=== PATIENT | female | born 1945 | race Caucasian/White ===

== ENCOUNTER 2021-09-28 11:17 | Emergency (ER) | payer MEDICARE, OTHER, SELFPAY ==
[2021-09-28 11:25] VITALS: BP 175/63; PULSE 64; TEMP 36.1; O2SAT 99; BMI 31.7
--- NOTE | 2021-09-28 11:35 | CRLHL7_ITS ---
For Patients: As a result of the Century Cures Act, medical imaging exams and procedure reports are released immediately into your electronic medical record. You may view this report before your referring provider. If you have questions, please contact your health care provider. Indication: Trauma Technique: CT examination of the facial bones is performed. Thin-section axial imaging was obtained from above the frontal sinuses through the level the hyoid bone. Contrast was not administered. Sagittal and coronal reformatted imaging was performed. Please note that all CT scans at this facility use dose modulation, iterative reconstruction, and/or weight-based dosing when appropriate to reduce radiation dose to as low as reasonably achievable. Comparison: There are no prior studies for comparison. Findings: There is soft tissue swelling about the nose and there are nondisplaced bilateral nasal ala fractures, left greater than right. There are no additional facial or orbital region fractures identified. There are chronic inflammatory changes identified involving the left maxillary sinus. There is carious dentition. Abnormal periapical lucency is identified involving the posterior most upper left tooth, probably tooth 14, likely representing a periapical abscess. Impression: 1. Nondisplaced bilateral nasal ala fractures, left greater than right without significant displacement. 2. Chronic inflammatory changes of the sinuses primarily in the left maxillary sinus. 3. Carious dentition with abnormal periapical lucency suggesting periapical abscess. This affects the posterior-most upper left tooth, probably tooth 14. Please note that all CT scans at this facility use dose modulation, iterative reconstruction, and/or weight-based dosing when appropriate to reduce radiation dose to as low as reasonably achievable. Dictated by Domingo Espinosa MD @ 09/28/2021 12:21:20 PM (Electronically Signed)
--- NOTE | 2021-09-28 11:43 | ED_ITS ---
HPI - General Adult General Date Seen: 09/28/21 Chief complaint: Nose Injury/Pain Stated complaint: Fell, hurt nose Time Seen by Provider: 09/28/21 11:30 Source: patient Mode of arrival: ambulatory Limitations: no limitations History of Present Illness HPI narrative: 76-year-old female presents for evaluation of injury to her face. She tripped over a mat at her house today. She fell forward and hit her face on the ground. She knocked her maxillary central incisor is loose and went to the dentist. The dentist reposition her teeth and placed a wire to stabilize them. She is now here to evaluate for her other injuries. Primarily she is concerned about her nose. It is painful, bruised and swollen. She did not lose consciousness. She did not faint. She was feeling well today before she fell. She has no other injuries. She did not hurt her arms trying to catch her fall or hurt her knees when she landed. She reports no change in her vision. Other than her teeth and nose she is not having significant pain. Related Data Home Medications Medication Instructions Recorded Confirmed chlorthalidone 25 mg tablet 25 mg PO DAILY 09/28/21 09/28/21 lisinopril 40 mg tablet 40 mg PO DAILY 09/28/21 09/28/21 simvastatin 20 mg tablet 20 mg PO HS 09/28/21 09/28/21 Allergies Allergy/AdvReac Type Severity Reaction Status Date / Time Sulfa (Sulfonamide Allergy Verified 09/28/21 11:36 Antibiotics) Review of Systems Narrative: She reports no illness or injury. [facility] Medical History (Updated 09/28/21 @ 13:00 by Elder Tello MD) Hypertension Secondary renal hyperparathyroidism Stage 3 chronic kidney disease Surgical History (Updated 09/28/21 @ 11:48 by Elder Tello MD) History of cholecystectomy Social History Smoking Status: Unknown if ever smoked Do you use any of these nicotine containing products: None How often do you have a drink containing alcohol: monthly or less How often do you have six or more drinks on one occasion: Never AUDIT-C Alcohol total score: 1 Non-prescribed substance use: denies use Exam Narrative: Exam Narrative: She is alert and appears in no distress. Face is notable for moderate bruising and abrasion over the bridge of her nose. She has swelling of her upper lip hour as well. No other evidence of trauma on inspection of her head. Palpation shows no other areas of tenderness. This includes no tenderness over her forehead, orbital rims, zygomatic arch, mandible, TMJ. Eyes are normal. Pupils are equal round reactive to light. Extraocular movements are full. Moderate nasal swelling and bruising with abrasion. Inspection of her nares shows no active bleeding. Oropharynx notable for bruising around her upper incisors in the gingiva with a metal wire holding her incisors in place. Her upper lip has bruising and a superficial laceration/ulcer of about 2 x 5 mm. Tongue appears normal. Neck is supple without tenderness. She has diminished range of motion but no discomfort with range of motion of her neck. Inspection of her arms and legs are unremarkable. Const: Vital Signs, click to edit/add: Vital Signs - 24 hr 09/28/21 11:25 Temperature 97.0 F L Pulse Rate [Left] 64 Blood Pressure [Ri ght Upper Arm] 175/63 H Pulse Oximetry 99 Oxygen Delivery Me thod Room Air Documenting provider has reviewed patient's vital signs: yes Course Vital Signs Vital signs: Initial Vital Signs Temperature 97.0 F L 09/28/21 11:25 Temperature Source Temporal Artery Scan 09/28/21 11:25 Pulse Rate 64 09/28/21 11:25 Blood Pressure 175/63 H 09/28/21 11:25 Blood Pressure Mean 100 09/28/21 11:25 Blood Pressure Position Sitting 09/28/21 11:25 Pulse Oximetry 99 09/28/21 11:25 Oxygen Delivery Method 09/28/21 11:25 Vital Signs Temperature 97.0 F L 09/28/21 11:25 Pulse Rate 64 09/28/21 11:25 Blood Pressure 175/63 H 09/28/21 11:25 Pulse Oximetry 99 09/28/21 11:25 Oxygen Delivery Method 09/28/21 11:25 Temperature 97.0 F L 09/28/21 11:25 Pulse Rate 64 09/28/21 11:25 Blood Pressure 175/63 H 09/28/21 11:25 Pulse Oximetry 99 09/28/21 11:25 Oxygen Delivery Method 09/28/21 11:25 Discharge Plan Discharge Clinical Impression: Closed fracture nasal bone Patient Disposition: Home, Self-Care Condition: Stable Additional Instructions: Use Tylenol as needed for pain. The fractures of your nose are nondisplaced. You probably will not need any further treatment of your nasal fracture. Protect your nose and it should look normal once the bones heel in a few weeks. Keep the skin clean by washing with soap and water in the shower. Activity Level: Activity as Tolerated Prescriptions: No Action chlorthalidone 25 mg tablet 25 mg PO DAILY simvastatin 20 mg tablet 20 mg PO HS lisinopril 40 mg tablet 40 mg PO DAILY Follow Up/Referrals: Tram Campos PA [Primary Care Provider] - Stand Alone Forms: [employer] Info Instructions
[2021-09-28 13:23] VITALS: BP 161/103; PULSE 67; O2SAT 100
== END 2021-09-28 13:24 | disposition home or self-care (01) ==
PROVIDERS: Emergency Provider Family Medicine; PCP Physician Assistant
DX: S02.2XXA Fracture of nasal bones, initial encounter for closed fracture (principal); W01.0XXA Fall on same level from slipping, tripping and stumbling without subsequent striking against object, initial encounter
CPT/HCPCS: 70486; 99283

== ENCOUNTER 2024-10-08 18:27 | Emergency (ER) | payer MEDICARE, SELFPAY ==
--- OUTSIDE RECORDS SUMMARY | 2024-10-08 18:29 | XMS_ITS | Clinical Summary ---
Author Organization [facility] Address [address] [place] [id number] Care Team Providers Care Clinical Sociologist Name Role Phone Renae Emmanuel Primary Care Provider [phone] Allergies Active Allergy Reactions Criticality Noted Date Comments Sulfa (Sulfonamide Antibiotics) Rash 05/27 Medications glucosamine sulfate (GLUCOSAMINE) 500 mg Tab Take by mouth once daily. 0 01/24/20 10 Active acetaminophen (TYLENOL) 325 mg tablet Take 1 tablet by mouth every 4 hours if needed. Max acetaminophen dose: 4000mg in 24 hrs. 0 01/24/20 10 Active chlorthalidone (HYGROTON) 25 mg tabletIndications: HTN (hypertension) Take 1 Tablet (25 mg) by mouth once daily. 90 Tablet 3 03/11/19 25 Active lisinopriL (PRINIVIL; ZESTRIL) 40 mg tabletIndications: HTN (hypertension) Take 1 Tablet (40 mg) by mouth once daily. 90 Tablet 3 03/11/19 25 Active simvastatin (ZOCOR) 20 mg tabletIndications: Mixed hyperlipidemia Take 1 Tablet (20 mg) by mouth once daily in the evening. 90 Tablet 3 03/11/19 25 Active alendronate (FOSAMAX) 70 mg tabletIndications: Osteopenia with high risk of fracture Take 1 Tablet (70 mg) by mouth once a week in the morning. Take on empty stomach with full glass of water. Do not lie down for 1 hr. 12 Tablet 3 03/27/19 25 Active Active Problems Problem Noted Date Diagnosed Date Osteopenia with high risk of fracture 03/27/2024 Secondary renal hyperparathyroidism 03/30/2020 Osteoporosis screening 01/06/2020 Overview (01/06/2020): Bone density December 2019, normal. Repeat 3-5 years. HTN (hypertension) 11/18/2019 Calculus of gallbladder with out cholecystitis without obstruction 01/30/2018 Actinic keratosis 03/10/2010 Vitamin D deficiency 08/05/2008 Stage 3b chronic kidney disease 06/21/2007 Resolved Problems Problem Noted Date Diagnosed Date Resolved Date Unspecified essential hypertension 06/17/2007 01/23/2010 Immunizations Immunization Administration Dates Next Due COVID-19 VACCINE SPIKEVAX (M ODERNA 50MCG/0.5ML) 12YO+ PFS 01/28/2023 COVID-19 vaccine ([employer] NTech 30mcg/0.3mL) 12YO+ BIVALENT PF, MDV 09/04/2022,11/17/2021 Influenza, High-dose Inactivated 12/21/2018 Influenza, High-dose Quadriv alent Inactivated 12/19/2020 Influenza, IIV3 (Age >=3 years) 01/23/2010 Influenza, Inactivated AIIV4 (Age 65+ Years) Preserv Free 01/14/2023,01/03/2022,11/18/2019 Influenza, Inactivated IIV3 (Age 65+ Years) Preserv Free 12/11/2023,01/30/2018,03/04/2017 Pneumococcal Poly,23-Valent (Pneumovax) 01/24/20 10 Pneumococcal conj 13-Valent (Prevnar 13) 015 RSV, Recombinant ADJ Reconst ituted (Arexvy 120MCG/0.5mL) 02/28/2023 Td (Age >=7 Years) 10/16/1995 Tdap 12/11/2019,10/21/2006 Zoster (Shingrix-RZV, recombinant) 04/28/2020, Zoster (Zostavax-ZVL, live) 02/02/2010 Family History Medical History Relation Name Comments Heart Disease Brother 2 poor lifestyle /ca larynx, lungs Cancer Father leukemia age 90 Hypertension Mother Other Mother alzheimers Cancer Sister hodgkins lympho ma Cancer-breast Sister Diabetes Sister Heart failure Sister CHF Hypertension Sister Diabetes Son dialysis, needi ng kidney transplant, double amputee Liver disease Son liver failure Other Son Guillain [place], diagnosed in 2007 after a sinus infection Relation Name Status Comments Brother 1 (Age 70) cancer Brother 2 Father Mother Sister Son Social History Tobacco Use Types Packs/Day Years Used Date Smoking Tobacco: Never Smokeless Tobacco: Never Tobacco Cessation:Counseling Given: Yes Alcohol Use Standard Drinks/Week Comments No 0 (1 standard drink = 0.6 oz pur e alcohol) rare PHQ-2 Answer Date Recorded PHQ-2 TOTAL SCORE 0 03/11/2024 Social Connections Answer Date Recorded Frequency of Communication with Friends and Fami ly 0 02/09/2022 Financial Resource Strain Answer Date R ecorded Difficulty of Paying Living Expenses 3 02/09/2022 Difficulty of Paying Living Expenses Not on file 02/09/2022 Food Insecurity Answer Date Recorded Worried About Running Out of Food in the Last Ye ar 1 02/09/2022 Transportation Needs Answer Date Record ed Lack of Transportation (Medical) 1 02/09/2022 Housing Stability Answer Date Recorded Unable to Pay for Housing in the Last Year 1 02/09/2022 Comments No Sex and Gender Information Value Date Recorded Sex Assigned at Not on file Legal Sex Female 5:24 AM RESTAURANT LEAD Gender Identity Not on file Sexual Orientation Not on file Obstetrics History Para Term AB IAB SAB Ectopic Multiple Livin g Live Births 3 3 Date Outcome GA Total Labor Labor/2nd/3rd Weight Sex Type Anes PTL Berna A1 A5 Name Clin Current Last Filed Vital Signs Vital Sign Reading Time Taken Comments Blood Pressure 130/68 03/11/2024 12:47 PM RESTAURANT LEAD Pulse 80 03/11/2024 12:47 PM RESTAURANT LEAD Temperature 36.9 C (98.4 F) 10/30/2018 1:06 PM CDT Respiratory Rate 16 2018 9:32 AM RESTAURANT LEAD Oxygen Saturation 99% 03/11/2024 12:47 PM RESTAURANT LEAD Inhaled Oxygen Concentration - - Weight 79.8 kg (176 lb) 03/11/2024 12:47 PM RESTAURANT LEAD Height 153.7 cm (5' 0.5) 03/11/2024 12:47 PM CS T Body Mass Index 33.81 03/11/2024 12:47 PM RESTAURANT LEAD Plan of Treatment Health Maintenance Due Date Last Done Comments Influenza Vaccine (#1) 2024 4, 01/14/2023, 01/03/2022, Additional history exists COVID-19 vaccine series ( season) 2024 05/15/2024, 09/20/2023, 01/28/2023, Additional history exists BMI (ht and wt on same day) for age 18+ 03/11/2025 03/11/2024, 02/11/2023, 02/09/2022, Additional history exists Depression screening for age 12+ 03/11/2025 03/11/2024, 02/11/2023, 02/11/2023, Additional history exists Medicare Wellness for age 65+ 03/12/2025 03/11/2024, 02/11/2023, 02/09/2022, Additional history exists Tetanus booster 12/10/2029 12/11/2019, 09/26, 10/16/1995 Pneumococcal series for age 50+ Completed 05/18/2014, 01/23/2010 Hepatitis C screening for age 18-79 Completed 11/11/2019 Zoster (shingles) series for age 50+ Completed 04/28/2020, 01/07/2020, 02/02/2010 RSV vaccine for adults or Completed 02/28/2023 DEXA/DXA scan for age 65+ Completed 2024, 12/31/2019, 02/02/2010, Additional history exists Hepatitis B series for 19+ Aged Out N o longer eligible based on patient's age to complete this topic Procedures Procedure Name Priority Date/Time Associated Diagnosis Comments XR DXA BONE DENSITY 2 SITES AXIAL AND 1 SITE PERIPHERAL Routine 03/18/2024 1:17 PM RESTAURANT LEAD Menopause ANTI HCV Routine 11/11/2019 10:48 AM CDT Encounter for hepatitis C screening test for low risk patient from Last 3 Months or Most Recently Relevant to Health Maintenance Results * (ABNORMAL) XR DXA BONE DENSITY 2 SITES AXIAL AND 1 SITE PERIPHERAL (03/18/2024 1:17 PM RESTAURANT LEAD) Anatomical Region Laterality Modality LUMBAR SPINE Other Impressions 03/24/2024 1:37 PM RESTAURANT LEAD Osteopenia. RECOMMENDATIONS: The National Osteoporosis Foundation recommends pharmacologic treatment for patients with T-scores of -2.5 or less, patients with prior history of fragility fractures, or patients with 10-year probability of greater than 3% at hips or greater than 20% of suffering major osteoporotic fractures. Recommend continued optimization of calcium and vitamin D intake through dietary means and/or supplementation and regular exercise. Consider pharmacologic therapy for osteopenia with increased fracture risk. Follow-up bone density reading in 2 years if therapy initiated to assess therapeutic efficacy. Crystal Matamoros PA-C [facility] 03/24/2024 Narrative 03/24/2024 1:37 PM RESTAURANT LEAD For Patients: Results are automatically released to your [facility] ([employer]) account once available, in compliance with federal regulations. This means that you may see your results before your provider has had a chance to review them. Please allow 2-3 business days for your provider to comment on the results. XR DXA Bone Mineral Density (BMD) EXAM LOCATION: [address] [address] PATIENT NAME: Viktoriya Coffey DATE OF : 1945 EXAM DATE: 03/18/2024 REQUESTING PROVIDER: Renae Emmanuel PA GENDER AT : female HEIGHT: 5' 0.5 (03/11/2024) WEIGHT: 176 lb (03/11/2024) MENOPAUSAL STATUS: Postmenopausal RACE/ETHNICITY: White RISK FACTORS: Family History of Hip Fracture (parental), Height Loss (2 inches or more), Hyperparathyroidism, and White Race CURRENT MEDICATION FOR BONE LOSS: NONE INDICATION: Menopause COMPARISON DATE(S): 2019 DXA scans are compared to prior studies for a patient only when the two (or more) studies were performed on the same scanner. It is not possible to compare data generated on one scanner to data from another because there are not standards in DXA equipment. This applies even if the two scanners are made by the same damage inside adjuster. PROCEDURE: Dual-energy x-ray absorptiometry performed with routine technique. Reporting is completed in the form of a T-score. The T-score represents the standard deviation from peak bone mass based on young healthy adult. A Z-score is used for diagnosis in premenopausal women, and for men under the age of 50. FINDINGS: RESULT LUMBAR SPINE L1 - L2 (EXCLUDE L3, L4) BMD: 1.310 g/cm2 T-Score: + 1.1 Z-Score: + 2.4 Change from prior in 2007: Increase 6.1%. RESULTS FEMUR Left femoral neck BMD: 0.907 g/cm2 T-Score: - 0.9 Z-Score: + 0.8 Change from prior in 2019: Decrease 2.2%. Right femoral neck BMD: 0.845 g/cm2 T-Score: - 1.4 Z-Score: + 0.4 Change from prior in 2020: Decrease 6.0%. Left hip BMD: 0.883 g/cm2 T-Score: - 1.0 Z-Score: + 0.6 Change from prior in 2020: Decrease 2.2%. Right hip BMD: 0.807 g/cm2 T-Score: - 1.6 Z-Score: + 0.0 Change from prior in 2019: Decrease 9.6%. RESULT FOREARM Left Forearm distal radius BMD: 0.734 g/cm2 T-Score: + 1.0 Z-Score: + 3.6 Change from prior: None WHO criteria: Normal: T-score at or above -1 SD Osteopenia: T-score between -1.1 and -2.4 SD Osteoporosis: T-score at or below -2.5 SD FRAX RISK CALCULATION (USED FOR OSTEOPENIA ONLY): 10-year probability of major osteoporotic fracture: 20.3%. 10-year probability of hip fracture: 10.7%. us Renae KAUR DEXA Final Res ult * ANTI HCV (11/11/2019 10:48 AM CDT) HEPATITIS C ANTIBODY Non-React deyanira Non-React deyanira 11/11/2019 6:27 PM CDT [facility] Comment:Antibodies to HCV no t detected; does not exclude the possibility of exposure to HCV. Blood BLOOD SPECIMEN / Unknown Venipuncture / Unknown 11/11/2019 10:48 AM CDT 11/11/2019 10:48 AM CDT us Tram KAUR SEND OUTS Final Resu lt [facility] [address] [place] [address], from Last 3 Months or Most Recently Relevant to Health Maintenance Insurance MEDICARE PB ONLY [facility] Advance Directives Documents on File Type Date Recorded Patient Dependency Case Manager Expl anation Healthcare Directive 04/12/2016 017 Care Teams Clinical Sociologist Relationship Specialty Start Date End Date Renae Emmanuel PA [address] [place] [address] PCP - General Physician Sticker Hand 12/18/22
--- OUTSIDE RECORDS SUMMARY | 2024-10-08 18:29 | XMS_ITS | Clinical Summary ---
Author Organization [facility] Address [address] [place] [address] Care Team Providers Care Supervisor Testing Name Role Phone Elsewhere, Pcp Primary Care Provider Unavailabl e Source Comments Patient records contain information from all sites at [facility]. For routine questions regarding patient records, call [phone] during business hours, M-F 8:00 AM - 5:00 PM Central Time. Record requests for emergency care only can be directed to [phone] at any time.[facility] Allergies Active Allergy Reactions Criticality Noted Date Comments Sulfa (Sulfonamide Antibiotics) Rash 05/27 Medications chlorthalidone (HYGROTON) 25 mg tablet 0 Active lisinopriL (PRINIVIL,ZESTR [place]) 40 mg tablet 0 Active simvastatin (ZOCOR) 20 mg tablet 0 Active glucosamine sulfate 500 mg tablet Take by mouth. 0 Active acetaminophen (TYLENOL) 325 mg tablet Take 325 mg by mouth. 0 Active alendronate (Fosamax) 70 mg tablet Take 70 mg by mouth once a week. Take with 8oz of water, on an empty stomach. Remain upright for 30min. Active nirmatrelvir-ri tonavir (Paxlovid) 150-100 mg dose pack Take 150 mg nirmatrelvir (one 150 mg tablet) with 100 mg ritonavir (one 100 mg tablet) twice daily for 5 days. 20 tablet 5 Active Active Problems Problem Noted Date Diagnosed Date COVID-19 Infection 03/03/2020 Immunizations Immunization Administration Dates Next Due Influenza high dose QV(65 years or older) (PF) 1 Social History Tobacco Use Types Packs/Day Years Used Date Smoking Tobacco: Never Assessed Comments Unknown Sex and Gender Information Value Date Recorded Sex Assigned at Not on file Legal Sex Female 9:06 AM CDT Gender Identity Not on file Sexual Orientation Not on file Last Filed Vital Signs Vital Sign Reading Time Taken Comments Blood Pressure 108/50 03/05/2020 10:50 AM TANK FURNACE OPERATOR Pulse 69 03/05/2020 10:50 AM TANK FURNACE OPERATOR Temperature 37.1 C (98.8 F) 03/05/2020 10:50 AM TANK FURNACE OPERATOR Respiratory Rate 18 03/05/2020 10:50 AM TANK FURNACE OPERATOR Oxygen Saturation 99% 03/05/2020 10:50 AM TANK FURNACE OPERATOR Inhaled Oxygen Concentration - - Weight - - Height - - Body Mass Index - - Plan of Treatment Health Maintenance Due Date Last Done Comments Hepatitis C Screening 1945 Creatinine Level (Kidney Function Test) 02/12/2024 02/11/2023, 01/31/2022, 01/31/2021, Additional history exists Potassium Level 02/12/2024 02/11/2023, 12/0 08/2021, 01/31/2021, Additional history exists Sodium Level 02/12/2024 02/11/2023, 12/0 08/2021, 01/31/2021, Additional history exists Depression Screening (Annual PHQ-2) 02/26/2024 Fall Risk Screen (Annual) 02/26/2024 COVID-19 Vaccine ( season) 2024 05/15/2024, 09/20/2023, 01/28/2023, Additional history exists Influenza Vaccine (#1) 2024 , 01/14/2023, 01/03/2022, Additional history exists DTaP,Tdap,and Td Vaccines (3 - Td or Tdap) 12/10/2029 12/11/2019, 10/21/2006, 10/16/1995 Pneumococcal vaccine (50+ years) Completed 05/18/2014, 01/23/2010 Bone Density Scan (Osteoporosis Screen) Discontinued 12/31/2019 Zoster Vaccines Completed 04/28/2020, 12/26, 02/02/2010 RSV vaccine - (32-36 weeks) or 60+ years Completed 02/28/2023 Mammogram Discontinued 03/05/2024, 12/26, 01/01/2022, Additional history exists IPV Vaccines Aged Out No longer eligi reyna based on patient's age to complete this topic Insurance MEDICARE [employer] Care Teams Supervisor Testing Relationship Specialty Start Date End Date Elsewhere, Pcp PCP - General 06/18/21
[2024-10-08 18:39] VITALS: BP 174/63; PULSE 76; RESP 20; TEMP 36.3; O2SAT 98; BMI 32.5
--- NOTE | 2024-10-08 18:40 | ED.GENADULT ---
HPI - General Adult General Time Seen by Provider: 18:40 Date Seen: 10/08/24 Chief complaint: Fall/Minor Trauma Stated complaint: Fall, L leg injury, hit head Time Seen by Provider: 10/08/24 18:39 Source: patient Mode of arrival: ambulatory Limitations: no limitations History of Present Illness HPI narrative: Viktoriya is a 79-year-old female past medical history includes hypertension, chronic kidney disease presents emergency department via private car and was spouse after a fall. Patient states she was just finishing mowing the lawn, it was raining, was walking up her ramp to her house when she slipped forward twisting her left ankle and falling forward hitting side of her head on the wood floor. She denies any LOC. she was able to ambulate after the fall. She did sustain abrasion to the left front part of her head, she did have some swelling to that left ankle. She denies any neck pain or upper lower back pain, she denies any chest injury, shortness of breath or abdominal pain. She did not take any for pain. She is up-to-date on her tetanus status. Patient had been doing well prior to the fall. Related Data Home Medications ?Medication ?Instructions ?Recorded ?Confirmed chlorthalidone 25 mg tablet 25 mg PO DAILY 09/28/21 10/08/24 lisinopril 40 mg tablet 40 mg PO DAILY 09/28/21 10/08/24 simvastatin 20 mg tablet 20 mg PO HS 09/28/21 10/08/24 alendronate 70 mg tablet mg PO 10/08/24 Allergies Allergy/AdvReac Type Severity Reaction Status Date / Time Sulfa (Sulfonamide Allergy Verified 10/08/24 18:36 Antibiotics) Review of Systems Status of ROS: Reports: 10 or more systems reviewed and unremarkable except as noted in History and below [facility] Medical History Secondary renal hyperparathyroidism ?N25.81 - Secondary hyperparathyroidism of renal origin (ICD-10) Hypertension ?I10 - Essential (primary) hypertension (ICD-10) Stage 3 chronic kidney disease ?N18.30 - Chronic kidney disease, stage 3 unspecified (ICD-10) Surgical History (Updated 09/28/21 @ 11:48 by Elder Tello MD) History of cholecystectomy ?Z90.49 - Acquired absence of other specified parts of digestive tract (ICD-10) Social History Smoking Status: Unknown if ever smoked Do you use any of these nicotine containing products: None How often do you have a drink containing alcohol: monthly or less How often do you have six or more drinks on one occasion: Never AUDIT-C Alcohol total score: 1 Non-prescribed substance use: denies use Exam Narrative: Exam Narrative: General: No obvious distress, sitting comfortably HEENT: Tympanic membranes within normal limits bilaterally, pupils equal round reactive to light Extraocular muscles intact, small abrasion contusion in the left frontal region Oropharynx clear and moist Lungs: Clear to auscultation bilaterally Heart: Normal sinus rhythm S1-S2 Abdomen: Soft, nontender, bowel sounds present Muscle skeletal: Nontender to palpation the cervical, thoracic and lumbar spine Full range of motion of the right and left hip Left lower extremity: No proximal tibia and fibula tenderness, tender to palpation the lateral malleolus, swelling present, mild tenderness to palpation the proximal lateral foot, FROM, CMS intact. Const: Vital Signs, click to edit/add: Vital Signs - 24 hr 10/08/24 18:39 Temperature 97.4 F L Pulse Rate [Pulse Oximeter] 76 Respiratory Rate 20 Blood Pressure [Ri ght Upper Arm] 174/63 H Pulse Oximetry 98 Oxygen Delivery Me thod Room Air Course Course ED Course: 6:45 PM: aidet performed. Vitals are normal at this time, workup will include CT head without IV contrast, XR left foot and ankle 3+ views, no other labs or imaging to be obtained at this time, 1 g Tylenol for her pain differential includes fracture, sprain, contusion, dislocation, vascular damage, nerve damage ligament damage, tendon damage, for the head injury close head injury, concussion, life-threatening considerations are subarachnoid hemorrhage, subdural hemorrhage and epidural hemorrhage. Reevaluation(s) Time of Reevaluation #1: 20:10 Reevaluation #1: CT head without IV contrast: IMPRESSION: 1. No acute intracranial abnormalities. XR left ankle and foot 3+ views: Findings/Impression: Bones: Alignment is normal. No displaced fractures or bone lesions. Joint spaces: Unremarkable. Soft tissues: Unremarkable. Brooks wrap applied, offered crutches patient declined, she will follow up with her primary care provider next 7-10 days, RICE instructions given, Tylenol and or Motrin every 4-6 hours as needed for pain, return precautions given. Vital Signs Vital signs: Initial Vital Signs Temperature 97.4 F L 10/08/24 18:39 Temperature Source Temporal Artery Scan 10/08/24 18:39 Pulse Rate 76 10/08/24 18:39 Respiratory Rate 20 10/08/24 18:39 Blood Pressure 174/63 H 10/08/24 18:39 Blood Pressure Mean 100 10/08/24 18:39 Pulse Oximetry 98 10/08/24 18:39 Oxygen Delivery Method Room Air 10/08/24 18:39 Vital Signs Temperature 97.4 F L 10/08/24 18:39 Pulse Rate 76 10/08/24 18:39 Respiratory Rate 20 10/08/24 18:39 Blood Pressure 174/63 H 10/08/24 18:39 Pulse Oximetry 98 10/08/24 18:39 Oxygen Delivery Method Room Air 10/08/24 18:39 Temperature 97.4 F L 10/08/24 18:39 Pulse Rate 76 10/08/24 18:39 Respiratory Rate 20 10/08/24 18:39 Blood Pressure 174/63 H 10/08/24 18:39 Pulse Oximetry 98 10/08/24 18:39 Oxygen Delivery Method Room Air 10/08/24 18:39 Medications Administered Medications: Discontinued Medications Generic Name Dose Route Start Last Admin Trade Name Ted PRN Reason Stop Dose Admin Acetaminophen 1,000 mg 10/08/24 18:52 10/08/24 18:58 Acetaminophen 500 Mg Tablet PO 10/08/24 18:53 1,000 mg ONCE ONE Administration Discharge Plan Discharge Clinical Impression: Head injury, Injury of ankle, left Patient Disposition: Home, Self-Care Condition: Improved Instructions: Head Injury (ED), P.R.I.C.E. Treatment (ED) Activity Level: No Restrictions Prescriptions: No Action chlorthalidone 25 mg tablet 25 mg PO DAILY simvastatin 20 mg tablet 20 mg PO HS lisinopril 40 mg tablet 40 mg PO DAILY alendronate 70 mg tablet PO Follow Up/Referrals: Tram Campos PA [Primary Care Provider, Family Practice] Stand Alone Forms: MyHealth Info Instructions
--- NOTE | 2024-10-08 18:48 | CRLHL7_ITS ---
For Patients: As a result of the Century Cures Act, medical imaging exams and procedure reports are released immediately into your electronic medical record. You may view this report before your referring provider. If you have questions, please contact your health care provider. INDICATION: Fall. Left frontal contusion. TECHNIQUE: CT of the head without contrast. Coronal and sagittal reformats are included. COMPARISON: None. FINDINGS: No acute intracranial hemorrhage. No mass effect or midline shift. No hydrocephalus or extra-axial collections. White matter is within normal limits for age. No acute osseous abnormalities. Mild left maxillary sinus mucosal thickening. Paranasal sinuses and mastoid air cells are otherwise clear. Normal soft tissues. IMPRESSION: IMPRESSION: 1. No acute intracranial abnormalities. Please note that all CT scans at this facility use dose modulation, iterative reconstruction, and/or weight-based dosing when appropriate to reduce radiation dose to as low as reasonably achievable. Dictated by Alex Mcfarland MD @ 10/08/2024 7:33:14 PM (Electronically Signed)
--- NOTE | 2024-10-08 18:49 | CRLHL7_ITS ---
For Patients: As a result of the Cures Act, medical imaging exams and procedure reports are released immediately into your electronic medical record. You may view this report before your referring provider. If you have questions, please contact your health care provider. Indication: Trauma. Technique: Left foot, 3 views. Comparison: None. Findings/Impression: Bones: Alignment is normal. No displaced fractures or bone lesions. Joint spaces: Degenerative changes. Soft tissues: Unremarkable. Dictated by Jeferson Álvarez MD @ 10/08/2024 8:23:24 PM (Electronically Signed)
--- NOTE | 2024-10-08 18:49 | CRLHL7_ITS ---
For Patients: As a result of the Cures Act, medical imaging exams and procedure reports are released immediately into your electronic medical record. You may view this report before your referring provider. If you have questions, please contact your health care provider. Indication: Trauma. Technique: Left ankle, 3 views. Comparison: None. Findings/Impression: Bones: Alignment is normal. No displaced fractures or bone lesions. Joint spaces: Unremarkable. Soft tissues: Unremarkable. Dictated by Jeferson Álvarez MD @ 10/08/2024 8:22:02 PM (Electronically Signed)
[2024-10-08] MEDS: ACETAMINOPHEN 500 MG TABLET 1000 MG PO (18:58)
== END 2024-10-08 20:55 | disposition home or self-care (01) ==
PROVIDERS: Emergency Provider Student in an Organized Health Care Education/Training Program; PCP Physician Assistant
DX: S09.90XA Unspecified injury of head, initial encounter (principal); S99.912A Unspecified injury of left ankle, initial encounter; I12.9 Hypertensive chronic kidney disease with stage 1 through stage 4 chronic kidney disease, or unspecified chronic kidney disease; N18.30 Chronic kidney disease, stage 3 unspecified; W01.0XXA Fall on same level from slipping, tripping and stumbling without subsequent striking against object, initial encounter
CPT/HCPCS: 70450; 73610; 73630; 99283; 99284; A9270